=== PATIENT | female | born 1970 | race Asian ===

== ENCOUNTER 2022-03-07 13:50 | Outpatient (REF) | payer MEDICAID, SELFPAY ==
[2022-03-07 14:15] LABS: MANUAL DIFF FLAG NO
[2022-03-07 14:22] LABS: Basophils Percent Auto 0.6 % (0-2); Eosinophils Absolute Auto 0.1 X10*3/uL (0.0-0.4); Eosinophils Percent Auto 2.8 % (0-4); Hematocrit 40.7 % (37.0-47.0); Hemoglobin 13.6 g/dl (12.0-16.0); Imm Gran Abs Auto 0.02 X10*3/uL (0.00-0.03); Imm Gran Pct Auto 0.4 % (0.0-0.4); Lymphocytes Absolute Auto 1.8 X10*3/uL (1.2-4.9); Lymphocytes Percent Auto 35.5 % (20-40); Mean Corpuscular HGB Conc 33.4 g/dl (31.0-35.0); Mean Corpuscular Hemoglobin 31.2 pg (27.0-33.0); Mean Corpuscular Volume 93.3 fL (80.0-98.0); Mean Platelet Volume 9.6 fL (9.4-12.3); Monocytes Absolute Auto 0.6 X10*3/uL (0.1-1.2); Monocytes Percent Auto 11.2 % (2-11); Neutrophils Absolute Auto 2.5 x10*3/uL (2.0-8.3); Neutrophils Percent Auto 49.5 % (45-73); Platelet Count 237 X10*3/uL (160-400); Red Blood Count 4.36 X10*6/uL (4.20-5.50); Red Cell Distribution Width 12.4 % (11.0-16.0)
[2022-03-07 14:36] LABS: Prothrombin Time 11.3 SEC (10.0-13.1)
[2022-03-07 14:58] LABS: Alanine Aminotransferase 21 U/L (0-31); Albumin Level 4.6 g/dL (3.5-5.0); Alkaline Phosphatase 62 U/L (39-117); Anion Gap 14 (12-20); Aspartate Amino Transferase 25 U/L (5-31); Bilirubin Total < 0.2 mg/dL (0.0-1.0); Blood Urea Nitrogen 21 mg/dL (9-16); Calcium 9.6 mg/dL (8.4-10.2); Carbon Dioxide 25 mmol/L (22-29); Chloride 107 mmol/L (96-108); Estimated Glomerular Filt Rate > 60; Glucose Random 80 mg/dL (60-115); Potassium 4.2 mmol/L (3.3-5.1); Sodium 142 mmol/L (135-145); Total Protein 7.6 g/dL (6.5-8.0)
[2022-03-07 15:12] LABS: Vitamin D 25-OH Total 31.1 ng/mL (>30)
[2022-03-12 11:42] LABS: Hepatitis B Viral DNA Qn - cp 2.68 Log IU/mL (NOT DETECTED); Hepatitis B Viral DNA Qn-IU/mL 476 IU/mL (NOT DETECTED)
== END 2022-03-07 13:51 | disposition home or self-care (01) ==
LOC: HO.LAB 13:50
PROVIDERS: PCP Family Medicine; Visit Provider Internal Medicine Gastroenterology
DX: B19.10 Unspecified viral hepatitis B without hepatic coma (principal)
CPT/HCPCS: 36415; 80053; 82306; 85025; 85610; 87340; 87517; 99202

== ENCOUNTER 2022-04-18 09:33 | Outpatient (REF) | payer MEDICAID, SELFPAY ==
--- NOTE | ~2022-04-18 | US_ITS ---
EXAMINATION: US ABDOMEN COMPLETE CLINICAL INFORMATION: Hepatitis B. Cirrhosis. Screening for HCC. COMPARISON: Ultrasound abdomen complete 11/02/2019 and 12/09/2018. TECHNIQUE: Real-time imaging of the abdominal viscera. FINDINGS: PANCREAS: The pancreas appears unremarkable, without masses or ductal dilatation, with the exception of the tail which is obscured by bowel gas. ABDOMINAL AORTA: The proximal, mid, and distal segments are normal in caliber. INFERIOR VENA CAVA: Visualized portions are normal. LIVER: The liver is normal in size. The liver contour is normal. There is diffuse mildly heterogeneous increased liver parenchymal echogenicity, consistent with hepatic steatosis. No focal hepatic lesion. There is no intrahepatic biliary duct dilatation seen. GALLBLADDER: The gallbladder is physiologically distended without evidence of stones, sludge, polyps, wall thickening or pericholecystic fluid. COMMON BILE DUCT: Normal in caliber measuring 0.5 cm in diameter. RIGHT KIDNEY: No hydronephrosis. No renal calculi or focal parenchymal lesions. The kidney measures 10.4 cm in maximum dimension. LEFT KIDNEY: No hydronephrosis. No renal calculi or focal parenchymal lesions. The kidney measures 11.4 cm in maximum dimension. SPLEEN: Normal. The spleen measures 9.7 cm in maximum dimension. FREE FLUID: None. US/US abdomen complete IMPRESSION: Hepatic steatosis. No focal liver mass to suggest hepatocellular carcinoma.
== END 2022-04-18 09:34 | disposition home or self-care (01) ==
LOC: HO.US 09:33
PROVIDERS: Visit Provider Internal Medicine Gastroenterology
DX: B19.10 Unspecified viral hepatitis B without hepatic coma (principal)
CPT/HCPCS: 76700

== ENCOUNTER → 2022-07-11 10:18 | Outpatient (BNVA) | payer MEDICAID, SELFPAY | PROVIDERS: PCP Family Medicine; Visit Provider Internal Medicine Gastroenterology | DX: B18.1 Chronic viral hepatitis B without delta-agent (principal); K21.9 Gastro-esophageal reflux disease without esophagitis; R63.5 Abnormal weight gain; F90.9 Attention-deficit hyperactivity disorder, unspecified type | CPT/HCPCS: 99212 ==

== ENCOUNTER 2023-02-07 08:02 | Day surgery (SDC) | payer OTHER, SELFPAY ==
[2023-02-05 10:09] VITALS: BMI 32.2
[2023-02-07 08:23] VITALS: BMI 30.4
[2023-02-07 08:30] VITALS: BP 102/77; PULSE 79; RESP 16; TEMP 36.6; O2SAT 100
--- NOTE | 2023-02-07 08:54 | P.CONAN_ITS ---
HPI - Anesthesia Eval Consult details Narrative: forcolonoscopy screen [facility] Active Problems Active Problems: All Active Problems (Updated 02/05/23 @ 10:07 by Cynthia Zaman RN) Hepatitis B (Acute) Past Medical History Medical History ADHD (attention deficit hyperactivity disorder) Asthma Depression GERD (gastroesophageal reflux disease) Hepatitis B History of COVID-19 Lichen planus Family History Family history of problems with anesthesia: No Surgical History Surgical History Hx of tonsillectomy Hx of tooth extraction Social History Social History Household Members: Family Alcohol intake: former Patient Tobacco Use Status: Never used Tobacco Use of substances other than those prescribed or required for medical reasons: No Are you DNR?: No Advance Directives: No Advance Directives Information Provided: Yes Meds Allergies Allergy/AdvReac Type Severity Reaction Status Date / Time aspirin Allergy Unknown Anxiety Verified 02/07/23 08:21 Home Medications Medication Instructions Recorded Confirmed Last Taken Type budesonide-formoterol HFA 80 1 inh inhalation BID 03/07/22 02/07/23 Unknown History mcg-4.5 mcg/actuation aerosol inhaler (Symbicort) cetirizine 10 mg capsule (Zyrtec) 10 mg PO DAILY PRN Allergy Symptoms 03/07/22 02/07/23 Unknown History citalopram 30 mg capsule 30 mg PO DAILY 03/07/22 02/07/23 Unknown History fluticasone propionate 50 1 spray intranasal DAILY 03/07/22 02/07/23 Unknown History mcg/actuation nasal spray,suspension (Flonase Allergy Relief) multivitamin 1 tab PO DAILY 03/07/22 02/07/23 Unknown History albuterol sulfate 90 mcg/actuation 2 puff inhalation Q6H PRN wheezing 07/11/22 02/07/23 Unknown History aerosol inhaler (ProAir HFA) metronidazole 0.75 % (37.5 mg/5 1 appful vaginal BEDTIME 02/07/23 02/07/23 Unknown History gram) vaginal gel Exam Exam Date and Time: February 07, 2023 0854 Height,Weight and Vital Signs: Height 5 ft 2 in Weight 75.296 kg Last Vital Signs Temp 97.8 F 02/07/23 08:30 Pulse 79 02/07/23 08:30 Resp 16 02/07/23 08:30 BP 102/77 02/07/23 08:30 Pulse Ox 100 02/07/23 08:30 O2 Del Method Room Air 02/07/23 08:30 Airway Mallampati Class: II TM Dist: >3cm Neck ROM: Full Heart: rrr Lungs: cta Assessment and Plan Assessment Anesthesia Assessment: Anesthesia Plan Discussed and Chart Reviewed Final Anesthetic Review Family History of Problems with Anesthesia: No NPO: Yes ASA Class: II Final Preanesthetic Review: No Changes in Pt Med Stat, Meds/Allgs Chart Reviewed, Consent Obtained/Reviewed and Anes Risks/Benef Reviewed Patient Risk: Low Procedure Risk: Low Anesthetic Plan Anesthetic Plan: MAC: Disposition: Standard PACU
[2023-02-07] MEDS: Lactated Ringers 1,000 ML 50 ML IVCONT (08:56)
--- NOTE | 2023-02-07 09:15 | MHC.SHP ---
Pre-Procedural Eval Section A Date of Service: 02/07/23 The patient is an INPATIENT: No The History & Physical has been completed within 30 days and I have reviewed it.: No Section B Chief Complaint: Colon cancer screening Relevant Family History (Specify if Yes): No Relevant Social History: None Present Medications: see Short Stay Collaborative assessment Medical History: Significant History (GERD, ADHD, asthma, depression) History of Previous Operations: Relevant previous surgery/procedure and date(s) (Hx of colonoscopy Hx of tonsillectomy Hx of tooth extraction) Allergies: Allergies Allergy/AdvReac Type Severity Reaction Status Date / Time aspirin Allergy Unknown Anxiety Verified 02/07/23 08:21 Review of Systems Sugical H&P ROS: Negative: Constitution, Cardiovascular, Respiratory and Gastrointestinal Exam Surgical H&P Exam: Normal: Heart, Normal: Lungs, Normal: Extremities and Normal: Abdomen Plan Diagnosis/Plan: Unchanged I have reviewed the history and physical and performed a pertinent physical examination on my patient. No changes have occurred unless specified. Time Spent With Patient Time: Total time managing care of this patient today ____ minutes.
--- NOTE | 2023-02-07 09:21 | PC.NURSE ---
Patient finished her prep at 345 this morning mixed with apple juice. Dr. Degroot made aware.
--- NOTE | 2023-02-07 09:25 | P.OP_ITS ---
Operative Note Operative Note Date of Service: 02/07/23 Narrative: COLONOSCOPY TILL CECUM WITH SNARE POLYPECTOMY, SUBMUCOSAL INJECTION AND HEMOCLIP PLACEMENT Pre-op diagnosis: Colon cancer screening Post-op diagnosis:? Colon polyps, diverticulosis Endoscopist:? Ronan Beck MD Anesthesia:?MAC Consent: Indications for the procedure and potential complications of bleeding, perforation, reaction to medications and missed diagnosis were discussed with the patient and informed consent was obtained. Instrument: Olympus PCF H 190 L variable stiffness pediatric colonoscope Monitoring: Vital signs and clinical assessment, intermittent blood pressure monitoring, continuous EKG monitoring, Pulse oximetry and Carbon Dioxide monitoring were done throughout the procedure. Please see anesthesia flowsheet. Colon withdrawl time was 20 minutes. Procedure: The patient was placed in the left lateral decubitis position and pre-procedure medications were administered. After a digital rectal examination of the ano-rectum, the video colonoscope was inserted into the rectum and advanced through the colon to the cecum. The colonoscope was slowly withdrawn in a retrograde panoramic fashion and the colon mucosa was carefully examined including a retroflexed view of the rectum. Findings and interventions are described below. Procedure Difficulty: Without difficulty Findings: Terminal Ileum: Not evaluated Cecum: Normal Ascending Colon: A 10-12 mm sessile polyp in the mid AC at 80 cms - removed with a hot snare. A 15 mm flat polyp at 80 cms. Polyp was raised with 3 cc of Eleview and removed with a stiff hot snare. Polypectomy site was closed with 1 hemoclip and marked by Tierney ink Transverse Colon: A 15 to 18 mm flat polyp at 65 cms. Polyp was raised with 3 cc of Eleview and removed with stiff hot snare Polypectomy site was closed with 2 hemoclips and marked by Tierney ink.. Descending Colon: Normal Sigmoid Colon: Moderate diverticulosis Rectum: Normal Ano-rectum: Normal Colon preparation: Good Impression and Post Procedure Diagnosis: Colonoscopy Findings: Three medium sized polyps removed Moderate diverticulosis seen in the sigmoid colon Moderate hemorrhoids on retroflexed exam. Plan: Await pathology results Patient has an appointment on 03/13/23 in the GI Clinic with Sylvester Gallego. Repeat Colonoscopy interval based on path results - in 3 years if polyps are adenomatous and 10 years if polyps are hyperplastic. Colon polyps and diverticulosis handouts were given in the discharge area
[2023-02-07 10:15] VITALS: BP 130/100; PULSE 75; RESP 17; TEMP 36.1; O2SAT 100
[2023-02-07 10:30] VITALS: BP 112/84; PULSE 74; RESP 16; O2SAT 100
[2023-02-07 10:45] VITALS: BP 111/79; PULSE 72; RESP 16; TEMP 36.1; O2SAT 99
== END 2023-02-07 11:12 | disposition home or self-care (01) ==
PROVIDERS: PCP Family Medicine; Visit Provider Internal Medicine Gastroenterology
PROC: 0DJD8ZZ Inspection of Lower Intestinal Tract, Via Natural or Artificial Opening Endoscopic (ICD-10-PCS; CPT 45378; principal; 2023-02-07 09:20)
DX: Z12.11 Encounter for screening for malignant neoplasm of colon (principal); D12.2 Benign neoplasm of ascending colon; D12.3 Benign neoplasm of transverse colon; K57.30 Diverticulosis of large intestine without perforation or abscess without bleeding; K64.8 Other hemorrhoids; B18.1 Chronic viral hepatitis B without delta-agent; K21.9 Gastro-esophageal reflux disease without esophagitis; J45.909 Unspecified asthma, uncomplicated; Z79.899 Other long term (current) drug therapy
CPT/HCPCS: 45385; 45381; 88305; J1100

== ENCOUNTER → 2023-02-07 08:02 | Outpatient (BNV) | payer OTHER, SELFPAY | PROVIDERS: PCP Family Medicine; Visit Provider Internal Medicine Gastroenterology | DX: Z12.11 Encounter for screening for malignant neoplasm of colon (principal); D12.2 Benign neoplasm of ascending colon; D12.3 Benign neoplasm of transverse colon; K57.30 Diverticulosis of large intestine without perforation or abscess without bleeding | CPT/HCPCS: 45381; 45385 ==

== ENCOUNTER 2023-03-13 13:06 | Outpatient (AMB) | payer OTHER, SELFPAY ==
[2023-03-13 13:09] VITALS: BP 112/69; PULSE 78; BMI 30.8
--- NOTE | 2023-03-13 13:09 | MHC.OFFVIS ---
Intake Vital Signs 03/13/23 13:09 Height 5 ft 2 in Weight 168 lb 6.931 oz BMI 30.8 BP 112/69 Blood Pressure Location Rt brachial Position Sitting Pulse 78 Intake Visit Reasons: 4 month FU Intake Note: Patient presents to in office visit today in follow up of colonoscopy. Patient underwent colonoscopy on 02/07/23. CC: Natalia reports she is having some GERD occasionally. Denies other GI symptoms today. 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 Accompanied by: Self / Same As Patient Allergies aspirin Allergy (Unknown, Verified 03/13/23 13:18) Unknown Medication List - Last Reconciled 03/13/23 by Ronan Beck MD albuterol sulfate 90 mcg/actuation (ProAir HFA) 2 puffs inhalation Q6H PRN budesonide-formoterol 80-4.5 mcg/actuation (Symbicort) 1 inh inhalation BID cetirizine (Zyrtec) 10 mg PO DAILY PRN citalopram 30 mg PO DAILY fluticasone propionate 50 mcg/actuation (Flonase Allergy Relief) 1 spray intranasal DAILY metronidazole 0.75%(37.5mg/5gram) 1 appful vaginal BEDTIME multivitamin 1 tab PO DAILY PFSH Medical History (Updated 03/13/23 @ 13:26 by Ronan Beck MD) Depression Lichen planus GERD (gastroesophageal reflux disease) History of COVID-19 Asthma Hepatitis B ADHD (attention deficit hyperactivity disorder) Surgical History (Updated 03/13/23 @ 13:15 by Mckenzie Melendrez [facility]) H/O colonoscopy H/O breast biopsy Hx of tonsillectomy Hx of tooth extraction Social History Household Members: Family Alcohol intake: former Patient Tobacco Use Status: Never used Tobacco Physical Exam Vital Signs: Last Vital Signs Pulse 78 03/13/23 13:09 BP 112/69 03/13/23 13:09 BMI result Body Mass Index 30.8 Assessment & Plan Assessment & Plan (1) Hepatitis B: Code(s): B19.10 - Unspecified viral hepatitis B without hepatic coma (2) History of colon polyps: Code(s): Z86.010 - Personal history of colonic polyps Orders: Orders Complete Blood Count no Diff 03/13/23 B19.10 - Unspecified viral hepatitis B without hepatic coma Hepatitis B Viral DNA Qn 03/13/23 B19.10 - Unspecified viral hepatitis B without hepatic coma Liver Panel 03/13/23 B19.10 - Unspecified viral hepatitis B without hepatic coma US abdomen limited 03/13/23 B19.10 - Unspecified viral hepatitis B without hepatic coma Medications: New famotidine 20 mg PO BID 180 tabs 3RF 90 days K21.9 - Gastro-esophageal reflux disease without esophagitis Coding Diagnoses Hepatitis B B19.10 History of colon polyps Z86.010
--- NOTE | 2023-03-13 13:09 | MHC.OFFVIS ---
Intake Vital Signs 03/13/23 13:09 Height 5 ft 2 in Weight 168 lb 6.931 oz BMI 30.8 BP 112/69 Blood Pressure Location Rt brachial Position Sitting Pulse 78 Intake Visit Reasons: 4 month FU Allergies aspirin Allergy (Unknown, Verified 03/13/23 13:18) Unknown Medication List - Last Reconciled 03/13/23 by Ronan Beck MD albuterol sulfate 90 mcg/actuation (ProAir HFA) 2 puffs inhalation Q6H PRN budesonide-formoterol 80-4.5 mcg/actuation (Symbicort) 1 inh inhalation BID cetirizine (Zyrtec) 10 mg PO DAILY PRN citalopram 30 mg PO DAILY fluticasone propionate 50 mcg/actuation (Flonase Allergy Relief) 1 spray intranasal DAILY metronidazole 0.75%(37.5mg/5gram) 1 appful vaginal BEDTIME multivitamin 1 tab PO DAILY HPI 4 month FU HPI Details GI clinic visit for this 52 YF for FU of GERD and Hepatitis B. CHRONIC ILLNESSES: ADHD, Hepatitis B LABS IN [place]:?11/02/19? REVIEWED, NORMAL LFTS. Hepatitis-B DNA was 1030 units/mL - slightly decreased? from December 2018. ?06/2016 LIVER FIBROSIS SCORE 0.24, LIVER FIBROSIS STAGE? F0 TO F1, NECROINFLAMMATORY SCORE 0.07 ?IMAGING STUDIES: 11/02/19? ABDOMINAL ULTRASOUND WITH ELASTOGRAPHY SHOWED: ??Coarse echogenic liver. Otherwise? rest of the abdominal ultrasound is unremarkable. 2. Elastography: Normal.? December 2018: ENDOSCOPIC STUDIES:?02/07/23 COLONOSCOPY SHOWED: Three medium sized polyps removed Moderate diverticulosis seen in the sigmoid colon Moderate hemorrhoids on retroflexed exam. Plan: Repeat Colonoscopy interval based on path results - in 3 years if polyps are adenomatous and 10 years if polyps are hyperplastic. BIOPSIES SHOWED: A. Colon, ascending, 80 cm, polypectomy x2: Sessile serrated polyp/lesion without dysplasia (1). B. Colon, transverse, 65 cm, polypectomy: Sessile serrated polyp/lesion without dysplasia TODAY'S VISIT: Colon results reviewed with the patient. Denies problems after her procedures. Coughing has improved and feels stronger. She ran out of Famotidine and notes recurrent GERD symptoms and is requesting a refill. She would like to see a Clip Wrapper for Lichen Planus. PAST VISITS: Continues to have coughing or wheezing since she had COVID. She is able to stand up to do her chores. Seen by pulmonary at [facility] [place] and had PFT Waiting to schedule an appt at the COVID clinic at [facility] Had asthma prior to getting COVID Returns after a hiatus of 2 yrs. Stayed home for a year due to COVID. Hospitalized for COVID in Oct, 2020 with pneumonia Has gained 40 lbs - some wt gain due to depression Complains of fatigue - now can shower standing up and going out to the garden. Notes heartburn - took rantidine prn in the past. Patient denies symptoms of dysphagia, nausea, vomiting, change in appetite.? Denies recent change in bowel habits, constipation, diarrhea, black stools or rectal bleeding. Had an episode of nausea and diarrhea lasting for a day almost 1 year ago. Patient denies major cardiac or pulmonary problems, loud snoring or sleep apnea Denies problems with anesthesia in the past. Denies being on chronic anticoagulation.? Takes Ibuprofen prn for back pain. Does not take aspirin due to undiagnosed bleeding disorder since childhood. Denies smoking or ETOH. 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 Patient denies known family history of colon polyps, colon cancer or other GI malignancies. An maternal aunt (Mom's half sister) had a couple of polyps PAST VISITS: ?Intermittent GERD symptoms associated with intake of [place]? food - [place] food - pork and duck skin, tomato based? products. ?Has gained weight due to depression associated with a bad? life style. ?Did not have insurance since she lost her? job. ?Going back to her therapist - family therapy with her daughter? who is 19 yrs. ?Has Lichen Planus and uses steroid cream and had UV? treatment. ?PAST GI HISTORY BY REVIEW OF MEDICAL RECORDS: ?Pt? was last seen on 12/07/18: ?Assessments ?1. Chronic viral? hepatitis B without delta agent and without coma - B18.1 (Primary) ?2.? Gastroesophageal reflux disease, esophagitis presence not specified - K21.9?3. Colon cancer screening - Z12.11 ?48 year old [place]? [place] female with chronic hepatitis B diagnosed in early . Patient? thinks she acquired hepatitis B infection from her dad by sharing razors blades.? Transaminases were minimally elevated a year ago. She is Hep B e antigen? negative. Patient may have early cirrhosis based on labs from June 2016? showing a Liver fibrosis score of 0.24 in correlating with liver fibrosis stage? of F0 to a F1. Course and prognosis of chronic hepatitis-B infection was? discussed with the patient including risk of hepatocellular carcinoma requiring? regular surveillance with abdominal ultrasound every 6 to 12 months. Patient? expressed concern regarding presence of fatty liver and was advised to await? results of abdominal ultrasound. Gwendolyn will return for a follow-up appointment? after repeat lab tests and an abdominal ultrasound. ?From? UTD: ?HBV DNA levels are also detectable in patients with? HBeAg-negative chronic hepatitis, although levels are generally lower than in? patients with HBeAg-positive chronic hepatitis. A serum HBV DNA level of? >2,000 international units/mL has been proposed as a cutoff level to? differentiate patients with HBeAg-negative chronic hepatitis from those in an? inactive carrier state (ie, HBeAg-negative, persistently normal ALT). Two? studies confirmed that serum HBV DNA levels of patients in the inactive carrier? state were persistently below 2000 international units/mL, but serum HBV DNA? levels were highly variable among patients with HBeAg-negative hepatitis.? Because of the fluctuations in HBV DNA levels in the latter patients, there is? no absolute cutoff level that is reliable for differentiating patients in the? inactive carrier state from those with HBeAg-negative chronic hepatitis B. Some? studies suggest that quantitative HBsAg levels <1000 international units/mL? help in differentiating inactive carriers from those with HBeAg-negative chronic? hepatitis. ?Clinical use The major clinical role of serum HBV DNA? assays in patients with chronic HBV infection is to assess HBV replication and? candidacy for antiviral therapy. Indications for HBV treatment are based upon? the presence of active liver disease and high HBV DNA levels. A cutoff of 20,000? international units/mL has been proposed for treatment initiation in? HBeAg-positive patients, and a lower threshold of 2000 international units/mL? for HBeAg-negative patients. ?Patient complained of intermittent? heartburn symptoms related to her diet. She was advised to start ranitidine 150? mg p.r.n. ?Patient turned 48 a few months ago and is interested in? colon cancer screening with colonoscopy. This will be discussed and scheduled on? her follow-up visit. ?Treatment ?1. Chronic viral hepatitis? B without delta agent and without coma ? LAB: LIVER PROFILE? LAB: CBC w/o DIFF ? LAB: PROTHROMBIN TIME (PT, INR)? LAB: HEPATITIS B E ANTIBODY ? LAB: HEPATITIS B E ANTIGEN? LAB: HEPATITIS B VIRAL DNA QUANT ? LAB: HEPATITIS A? ANTIBODY-IGG ? IMAGING: US ABD ?2. Gastroesophageal reflux? disease, esophagitis presence not specified ?Start Ranitidine 150 Max? Strength Tablet, 150 MG, 1 tablet at bedtime prn, Orally, Once a day, 60 day(s),? 60, Refills 3 ?Follow Up ?6 Weeks (Reason: FU of Hepatitis B? and C) [facility] Medical History (Updated 03/13/23 @ 13:26 by Ronan Beck MD) Depression Lichen planus GERD (gastroesophageal reflux disease) History of COVID-19 Asthma Hepatitis B ADHD (attention deficit hyperactivity disorder) Surgical History (Updated 03/13/23 @ 13:15 by MAITE Jacques) H/O colonoscopy H/O breast biopsy Hx of tonsillectomy Hx of tooth extraction Social History Household Members: Family Alcohol intake: former Patient Tobacco Use Status: Never used Tobacco Review of Systems Const All systems reviewed & are unremarkable except as noted in HPI and below Physical Exam Vital Signs: Last Vital Signs Pulse 78 03/13/23 13:09 BP 112/69 03/13/23 13:09 BMI result Body Mass Index 30.8 Const General: healthy appearing and no acute distress Nutritional Appearance: obese Orientation/consciousness: patient oriented x3 Limitations: no limitations HEENT Head: Yes normal to inspection Ears: hearing grossly normal bilaterally Eyes Sclerae: sclerae normal Pupils: Equal, round and reactive pupils present Neck Neck: Yes normal visual inspection Chest Chest palpation & inspection: normal inspection of the chest Resp Effort & Inspection: normal respiratory effort Auscultation: clear to auscultation bilaterally Cardio Palpation: normal PMI Rate: regular rate Rhythm: regular rhythm Heart sounds: S1 normal heart sound present, S2 normal heart sound present and no murmurs GI Palpation (GI): Soft to palpation, nontender and No hepatosplenomegaly present Auscultation: normal bowel sounds Rectal Exam - Female: deferred Skin General skin exam: no rashes or lesions noted Neuro General: patient oriented x3, gait normal and moves all extremities Cranial nerves: Yes Equal, round and reactive pupils present Psych Appearance: grossly normal Mental Status: mental status grossly normal Assessment & Plan Assessment & Plan (1) Hepatitis B: Code(s): B19.10 - Unspecified viral hepatitis B without hepatic coma (2) History of colon polyps: Code(s): Z86.010 - Personal history of colonic polyps Plan 52 year old [place] female with chronic hepatitis B diagnosed in early? . Patient thinks she acquired hepatitis B infection from her dad by sharing? razors blades. Transaminases were minimally elevated a few years ago. She is Hep B E antigen negative and ab positive. Patient may have early cirrhosis based on labs from June? 2016 showing a Liver fibrosis score of 0.24 correlating with liver fibrosis? stage of F0 to a F1. Course and prognosis of chronic hepatitis-B infection was? discussed with the patient (at a previous visit) including risk of hepatocellular carcinoma requiring? regular surveillance with abdominal ultrasound every 6 to 12 months. Patient? expressed concern regarding presence of fatty liver. 11/02/19 abdominal? ultrasound showed echogenic liver with normal elastography. Patient complained of intermittent heartburn symptoms related to her diet.? She was advised to start ranitidine 150 mg p.r.n at a previous visit. Continues to have coughing or wheezing since she had COVID in October 2020. 03/13/23 Resume Famotidine for GERD, repeat labs and schedule abd US for HCC surveillance FU in 6 months From UTD: HBV? DNA levels are also detectable in patients with HBeAg-negative chronic? hepatitis, although levels are generally lower than in patients with? HBeAg-positive chronic hepatitis. A serum HBV DNA level of >2,000? international units/mL has been proposed as a cutoff level to differentiate? patients with HBeAg-negative chronic hepatitis from those in an inactive carrier? state (ie, HBeAg-negative, persistently normal ALT). Two studies confirmed that? serum HBV DNA levels of patients in the inactive carrier state were persistently? below 2000 international units/mL, but serum HBV DNA levels were highly variable among patients with HBeAg-negative hepatitis. Because of the fluctuations in HBV? DNA levels in the latter patients, there is no absolute cutoff level that is reliable for differentiating patients in the inactive carrier state from those? with HBeAg-negative chronic hepatitis B. Some studies suggest that quantitative HBsAg levels <1000 international units/mL help in differentiating inactive? carriers from those with HBeAg-negative chronic hepatitis. Clinical use The? major clinical role of serum HBV DNA assays in patients with chronic HBV? infection is to assess HBV replication and candidacy for antiviral therapy.? Indications for HBV treatment are based upon the presence of active liver disease and high HBV DNA levels. A cutoff of 20,000 international units/mL has? been proposed for treatment initiation in HBeAg-positive patients, and a lower? threshold of 2000 international units/mL for HBeAg-negative patients.? Orders: Orders Complete Blood Count no Diff 03/13/23 B19.10 - Unspecified viral hepatitis B without hepatic coma Hepatitis B Viral DNA Qn 03/13/23 B19.10 - Unspecified viral hepatitis B without hepatic coma Liver Panel 03/13/23 B19.10 - Unspecified viral hepatitis B without hepatic coma US abdomen limited 03/13/23 B19.10 - Unspecified viral hepatitis B without hepatic coma Medications: New famotidine 20 mg PO BID 90 days 180 tabs 3RF K21.9 - Gastro-esophageal reflux disease without esophagitis Coding Level of Care Code Est Pt Level 4 (06595) Diagnoses Hepatitis B B19.10 History of colon polyps Z86.010 Time Spent (min) 22
== END 2023-03-13 13:51 | disposition home or self-care (01) ==
PROVIDERS: PCP Family Medicine; Visit Provider Internal Medicine Gastroenterology
DX: B19.10 Unspecified viral hepatitis B without hepatic coma (principal); Z86.010 Personal history of colon polyps
CPT/HCPCS: 99214

== ENCOUNTER 2023-03-13 13:06 | Outpatient (REF) | payer OTHER, SELFPAY ==
[2023-03-13 14:08] LABS: Hemoglobin 13.7 g/dl (12.0-16.0); Mean Corpuscular HGB Conc 33.4 g/dl (31.0-35.0); Mean Corpuscular Hemoglobin 31.7 pg (27.0-33.0); Mean Corpuscular Volume 94.9 fL (80.0-98.0); Mean Platelet Volume 9.9 fL (9.4-12.3); Platelet Count 217 X10*3/uL (160-400); Red Blood Count 4.32 X10*6/uL (4.20-5.50); Red Cell Distribution Width 11.9 % (11.0-16.0); White Blood Count 5.7 X10*3/uL (4.8-10.8)
[2023-03-13 14:56] LABS: Alanine Aminotransferase 15 U/L (0-31); Albumin Level 4.6 g/dL (3.5-5.0); Alkaline Phosphatase 61 U/L (39-117); Aspartate Amino Transferase 21 U/L (5-31); Bilirubin Direct 0.1 mg/dL (0.0-0.5); Bilirubin Total 0.4 mg/dL (0.0-1.0); Total Protein 8.1 g/dL (6.5-8.0)
[2023-03-15 12:03] LABS: Hepatitis B Viral DNA Qn - cp 2.33 Log IU/mL (NOT DETECTED); Hepatitis B Viral DNA Qn-IU/mL 213 IU/mL (NOT DETECTED)
== END 2023-03-13 13:07 | disposition home or self-care (01) ==
LOC: HO.LAB 13:06
PROVIDERS: PCP Family Medicine; Visit Provider Internal Medicine Gastroenterology
DX: B19.10 Unspecified viral hepatitis B without hepatic coma (principal); K21.9 Gastro-esophageal reflux disease without esophagitis; Z86.010 Personal history of colon polyps; Z79.899 Other long term (current) drug therapy
CPT/HCPCS: 36415; 80076; 85027; 87517; 99212

== ENCOUNTER 2023-04-18 10:12 | Outpatient (REF) | payer OTHER, SELFPAY ==
--- NOTE | ~2023-04-18 | US_ITS ---
EXAMINATION: US ABDOMEN LIMITED CLINICAL INFORMATION: Unspecified viral hepatitis B without hepatic coma. Screening for hepatocellular carcinoma. COMPARISON: Ultrasound abdomen complete 04/18/2022 and 11/02/2019. TECHNIQUE: Real-time imaging of the right upper quadrant abdominal viscera. Limited visualization due to bowel gas. FINDINGS: PANCREAS: Limited visualization of pancreatic tail and head. Imaged portion of pancreatic body is unremarkable. LIVER: Increased hepatic parenchymal heterogeneity and echogenicity which could be associated with hepatic steatosis or hepatocellular disease and substantially limits visualization. GALLBLADDER: No gallstones. No gallbladder wall thickening. COMMON BILE DUCT: Normal in caliber measuring 0.19 cm in diameter. RIGHT KIDNEY: No hydronephrosis. No renal calculi. Renal cortical thickness is normal. Limited visualization. The kidney measures 8.2 cm in maximum dimension. FREE FLUID: None. US/US abdomen limited IMPRESSION: Increased hepatic parenchymal heterogeneity and echogenicity which could be associated with hepatic steatosis or hepatocellular disease and substantially limits visualization.
== END 2023-04-18 10:13 | disposition home or self-care (01) ==
LOC: HO.US 10:12
PROVIDERS: PCP Family Medicine; Visit Provider Internal Medicine Gastroenterology
DX: B19.10 Unspecified viral hepatitis B without hepatic coma (principal)
CPT/HCPCS: 76705

== ENCOUNTER 2025-02-10 11:55 | Outpatient (REF) | payer OTHER, SELFPAY ==
[2025-02-10 13:54] LABS: Hematocrit 42.8 % (37.0-47.0); Hemoglobin 14.4 g/dl (12.0-16.0); Mean Corpuscular HGB Conc 33.6 g/dl (31.0-35.0); Mean Corpuscular Hemoglobin 31.8 pg (27.0-33.0); Mean Corpuscular Volume 94.5 fL (80.0-98.0); NRBC Abs Auto 0.000 X10*3/uL (0.0-0.012); NRBC Pct Auto 0.0 /100WBC (0.0-0.2); Platelet Count 250 X10*3/uL (160-400); Red Blood Count 4.53 X10*6/uL (4.20-5.50); White Blood Count 5.1 X10*3/uL (4.8-10.8)
[2025-02-10 14:30] LABS: Alanine Aminotransferase 41 U/L (0-31); Albumin Level 5.0 g/dL (3.5-5.0); Alkaline Phosphatase 61 U/L (39-117); Anion Gap 11 (12-20); Aspartate Amino Transferase 42 U/L (5-31); Blood Urea Nitrogen 15 mg/dL (9-16); Calcium 9.7 mg/dL (8.4-10.2); Carbon Dioxide 28 mmol/L (22-29); Chloride 104 mmol/L (96-108); Estimated Glomerular Filt Rate > 60; Potassium 3.8 mmol/L (3.3-5.1); Sodium 139 mmol/L (135-145); Total Protein 8.5 g/dL (6.5-8.0)
[2025-02-10 14:54] LABS: Folate 11.6 ng/mL (> or = 4.0); Vitamin B12 575 pg/mL (200-900)
[2025-02-11 14:18] LABS: Hepatitis B Viral DNA Qn - cp 2.02 Log IU/mL (NOT DETECTED); Hepatitis B Viral DNA Qn-IU/mL 105 IU/mL (NOT DETECTED)
[2025-02-18 00:33] LABS: FIB-ALT 24 U/L (6-29); FIB-Alpha-2-Macroglobulin 389 mg/dL (106-279); FIB-Apolipoprotein A1 187 mg/dL (101-198); FIB-GGT 9 U/L (3-70); FIB-Haptoglobin 94 mg/dL (43-212); FIB-Total Bilirubin 0.4 mg/dL (0.2-1.2); Liver Fibrosis Score 0.25; Liver Fibrosis Stage F0-F1; Nec Inflam Act Grade A0; Nec Inflam Act Score 0.10
== END 2025-02-10 11:56 | disposition home or self-care (01) ==
LOC: HO.LAB 11:55
PROVIDERS: PCP Family Medicine; Visit Provider Internal Medicine Gastroenterology
DX: B19.10 Unspecified viral hepatitis B without hepatic coma (principal); K21.9 Gastro-esophageal reflux disease without esophagitis; Z86.0100 Personal history of colon polyps, unspecified
CPT/HCPCS: 36415; 80053; 81596; 82607; 82746; 85027; 87517; 99212

== ENCOUNTER 2025-02-10 11:55 | Outpatient (AMB) | payer OTHER, SELFPAY ==
--- NOTE | 2025-02-10 12:11 | A.OFFVIS_ITS ---
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 Accompanied by: Self / Same As Patient Allergies aspirin Allergy (Unknown, Verified 02/10/25 12:10) Unknown Medication List - Last Reconciled 02/10/25 by Ronan Beck MD albuterol sulfate 90 mcg/actuation (ProAir HFA) 2 puffs inhalation Q6H PRN budesonide-formoterol 80-4.5 mcg/actuation (Symbicort) 1 inh inhalation BID cetirizine (Zyrtec) 10 mg PO DAILY citalopram 30 mg PO DAILY famotidine 20 mg PO BID 90 days fluticasone propionate 50 mcg/actuation (Flonase Allergy Relief) 1 spray intranasal DAILY metronidazole 0.75%(37.5mg/5gram) 1 appful vaginal BEDTIME multivitamin 1 tab PO DAILY HPI HPI CHRONIC Hep B: Details: GI clinic visit for this 54 YF for FU of GERD and Hepatitis B. Last seen in 03/2023 CHRONIC ILLNESSES: ADHD, Hepatitis B TODAY'S VISIT: Patient cc: chronic acid reflux, with feeling of food dont go down quickly on her esophagus Missed her appt last year since she did not have transportation Scheduled for PFT after holding steroids, allergy pills and inhalers Notes acid regurgitation with burning in her chest after eating a fatty meal Taking TUMS prn. Still gets tired on walking and has issues with her balance. Taking Vyvanse 30 mg daily. PAST VISITS: Colon results reviewed with the patient. Denies problems after her procedures. Coughing has improved and feels stronger. She ran out of Famotidine and notes recurrent GERD symptoms and is requesting a refill. She would like to see a Administrative Associate for Lichen Planus. Continues to have coughing or wheezing since she had COVID. She is able to stand up to do her chores. Seen by pulmonary at [facility] and had PFT Waiting to schedule an appt at the COVID clinic at [facility] Had asthma prior to getting COVID Returns after a hiatus of 2 yrs. Stayed home for a year due to COVID. Hospitalized for COVID in Oct, 2020 with pneumonia Has gained 40 lbs - some wt gain due to depression Complains of fatigue - now can shower standing up and going out to the garden. Notes heartburn - took rantidine prn in the past. Patient denies symptoms of dysphagia, nausea, vomiting, change in appetite.? Denies recent change in bowel habits, constipation, diarrhea, black stools or rectal bleeding. Had an episode of nausea and diarrhea lasting for a day almost 1 year ago. Patient denies major cardiac or pulmonary problems, loud snoring or sleep apnea Denies problems with anesthesia in the past. Denies being on chronic anticoagulation.? Takes Ibuprofen prn for back pain. Does not take aspirin due to undiagnosed bleeding disorder since childhood. Denies smoking or ETOH. 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 Patient denies known family history of colon polyps, colon cancer or other GI malignancies. An maternal aunt (Mom's half sister) had a couple of polyps PAST VISITS: ?Intermittent GERD symptoms associated with intake of Tanzanian? food - Tanzanian food - pork and duck skin, tomato based? products. ?Has gained weight due to depression associated with a bad? life style. ?Did not have insurance since she lost her? job. ?Going back to her therapist - family therapy with her daughter? who is 19 yrs. ?Has Lichen Planus and uses steroid cream and had UV? treatment. [facility]?11[facility]? REVIEWED, NORMAL LFTS. Hepatitis-B DNA was 1030 units/mL - slightly decreased? from December 2018. ?06/2016 LIVER FIBROSIS SCORE 0.24, LIVER FIBROSIS STAGE? F0 TO F1, NECROINFLAMMATORY SCORE 0.07 ?IMAGING STUDIES: 11/02/19? ABDOMINAL ULTRASOUND WITH ELASTOGRAPHY SHOWED: ??Coarse echogenic liver. Otherwise? rest of the abdominal ultrasound is unremarkable. 2. Elastography: Normal.? December 2018: ENDOSCOPIC STUDIES:?02/07/23 COLONOSCOPY SHOWED: Three medium sized polyps removed Moderate diverticulosis seen in the sigmoid colon Moderate hemorrhoids on retroflexed exam. Plan: Repeat Colonoscopy interval based on path results - in 3 years if polyps are adenomatous and 10 years if polyps are hyperplastic. BIOPSIES SHOWED: A. Colon, ascending, 80 cm, polypectomy x2: Sessile serrated polyp/lesion without dysplasia (1). B. Colon, transverse, 65 cm, polypectomy: Sessile serrated polyp/lesion without dysplasia ?PAST GI HISTORY BY REVIEW OF MEDICAL RECORDS: ?Pt? was last seen on 12/07/18: ?Assessments ?1. Chronic viral? hepatitis B without delta agent and without coma - B18.1 (Primary) ?2.? Gastroesophageal reflux disease, esophagitis presence not specified - K21.9?3. Colon cancer screening - Z12.11 ?48 year old [place]? Malagasy female with chronic hepatitis B diagnosed in early . Patient? thinks she acquired hepatitis B infection from her dad by sharing razors blades.? Transaminases were minimally elevated a year ago. She is Hep B e antigen? negative. Patient may have early cirrhosis based on labs from June 2016? showing a Liver fibrosis score of 0.24 in correlating with liver fibrosis stage? of F0 to a F1. Course and prognosis of chronic hepatitis-B infection was? discussed with the patient including risk of hepatocellular carcinoma requiring? regular surveillance with abdominal ultrasound every 6 to 12 months. Patient? expressed concern regarding presence of fatty liver and was advised to await? results of abdominal ultrasound. Gwendolyn will return for a follow-up appointment? after repeat lab tests and an abdominal ultrasound. ?From? UTD: ?HBV DNA levels are also detectable in patients with? HBeAg-negative chronic hepatitis, although levels are generally lower than in? patients with HBeAg-positive chronic hepatitis. A serum HBV DNA level of? >2,000 international units/mL has been proposed as a cutoff level to? differentiate patients with HBeAg-negative chronic hepatitis from those in an? inactive carrier state (ie, HBeAg-negative, persistently normal ALT). Two? studies confirmed that serum HBV DNA levels of patients in the inactive carrier? state were persistently below 2000 international units/mL, but serum HBV DNA? levels were highly variable among patients with HBeAg-negative hepatitis.? Because of the fluctuations in HBV DNA levels in the latter patients, there is? no absolute cutoff level that is reliable for differentiating patients in the? inactive carrier state from those with HBeAg-negative chronic hepatitis B. Some? studies suggest that quantitative HBsAg levels <1000 international units/mL? help in differentiating inactive carriers from those with HBeAg-negative chronic? hepatitis. ?Clinical use The major clinical role of serum HBV DNA? assays in patients with chronic HBV infection is to assess HBV replication and? candidacy for antiviral therapy. Indications for HBV treatment are based upon? the presence of active liver disease and high HBV DNA levels. A cutoff of 20,000? international units/mL has been proposed for treatment initiation in? HBeAg-positive patients, and a lower threshold of 2000 international units/mL? for HBeAg-negative patients. ?Patient complained of intermittent? heartburn symptoms related to her diet. She was advised to start ranitidine 150? mg p.r.n. ?Patient turned 48 a few months ago and is interested in? colon cancer screening with colonoscopy. This will be discussed and scheduled on? her follow- up visit. ?Treatment ?1. Chronic viral hepatitis? B without delta agent and without coma ? LAB: LIVER PROFILE? LAB: CBC w/o DIFF ? LAB: PROTHROMBIN TIME (PT, INR)? LAB: HEPATITIS B E ANTIBODY ? LAB: HEPATITIS B E ANTIGEN? LAB: HEPATITIS B VIRAL DNA QUANT ? LAB: HEPATITIS A? ANTIBODY-IGG ? IMAGING: US ABD ?2. Gastroesophageal reflux? disease, esophagitis presence not specified ?Start Ranitidine 150 Max? Strength Tablet, 150 MG, 1 tablet at bedtime prn, Orally, Once a day, 60 day(s),? 60, Refills 3 ?Follow Up ?6 Weeks (Reason: FU of Hepatitis B? and C [facility] Medical History (Updated 03/13/23 @ 13:26 by Ronan Beck MD) Depression Lichen planus GERD (gastroesophageal reflux disease) History of COVID-19 Asthma Hepatitis B ADHD (attention deficit hyperactivity disorder) Surgical History H/O colonoscopy H/O breast biopsy Hx of tonsillectomy Hx of tooth extraction Social History Household Members: Family Alcohol intake: former Patient Tobacco Use Status: Never used Tobacco Review of Systems Const Denies fever(s), Denies headache(s) and Reports weight loss (of 5 lbs) Eyes Denies eye discharge and Denies irritation ENT Reports Normal hearing present, Denies dysphagia, Denies dizziness and Denies headache(s) Card Denies chest pain, Denies leg edema, Reports dyspnea and Reports dyspnea on exertion Resp Reports cough, Reports dyspnea, Reports dyspnea on exertion and Reports wheezing GI Denies abdominal pain, Reports bloating, Denies change in bowel habits, Denies dysphagia and Reports heartburn Denies difficulty voiding, Denies dysuria and Reports other (post menopausal and IUD) Musc Denies back pain and Reports arthralgias Skin/Breast Denies pruritus, Reports rash and Denies jaundice Neuro Reports Normal hearing present, Denies Abnormal speech present, Denies dizziness, Denies headache(s) and Denies seizure-like activity Psych Reports anxiety, Reports depression and Denies panic attacks Endo Denies cold intolerance, Denies flushing and Denies heat intolerance Nabeel/Lymph Denies easy bleeding and Denies easy bruising Aller/Immun Reports wheezing Physical Exam Vital Signs: Last Vital Signs Pulse 82 02/10/25 12:21 BP 128/87 02/10/25 12:21 BMI result Body Mass Index 29.6 Const General: no acute distress and anxious Nutritional Appearance: overweight Orientation/consciousness: patient oriented x3 HEENT Head: Yes normal to inspection Ears: hearing grossly normal bilaterally Eyes Sclerae: sclerae normal Pupils: Equal, round and reactive pupils present Neck Neck: Yes normal visual inspection Chest Chest palpation & inspection: normal inspection of the chest Resp Effort & Inspection: normal respiratory effort Auscultation: clear to auscultation bilaterally Cardio Palpation: normal PMI Rate: regular rate Rhythm: regular rhythm Heart sounds: S1 normal heart sound present, S2 normal heart sound present and no murmurs GI Palpation (GI): Soft to palpation, nontender and No hepatosplenomegaly present Auscultation: normal bowel sounds Rectal Exam - Female: deferred Skin General skin exam: no rashes or lesions noted Neuro General: patient oriented x3, gait normal and moves all extremities Cranial nerves: Yes Equal, round and reactive pupils present and Yes Normal hearing present Speech: No Abnormal speech present Psych Appearance: grossly normal Mental Status: mental status grossly normal Assessment & Plan Assessment & Plan (1) Hepatitis B: Code(s): B19.10 - Unspecified viral hepatitis B without hepatic coma Category: Medical (2) History of colon polyps: Code(s): Z86.010 - Personal history of colon polyps Category: Medical Plan 54 year old [place] Malagasy female with chronic hepatitis B diagnosed in early?. Patient thinks she acquired hepatitis B infection from her dad by sharing?razors blades. Transaminases were minimally elevated a few years ago. She is Hep B E antigen negative and ab positive. Patient may have early cirrhosis based on labs from June?2016 showing a Liver fibrosis score of 0.24 correlating with liver fibrosis? stage of F0 to a F1. Course and prognosis of chronic hepatitis-B infection was? discussed with the patient (at a previous visit) including risk of hepatocellular carcinoma requiring? regular surveillance with abdominal ultrasound every 6 to 12 months. Patient? expressed concern regarding presence of fatty liver. 11/02/19 abdominal? ultrasound showed echogenic liver with normal elastography. Patient complained of intermittent heartburn symptoms related to her diet.? She was advised to start ranitidine 150 mg p.r.n at a previous visit. Continues to have coughing or wheezing since she had COVID in October 2020. 02/10/25 Resume Famotidine for GERD, repeat labs and schedule abd US for HCC surveillance Pt offered further evaluation with an EGD - she prefers to schedule next year with her colonoscopy. Pt is requesting labs and US results to be faxed to her PCP's office. FU in 4 months - scheduled 06/16/25 From MDD: HBV? DNA levels are also detectable in patients with HBeAg-negative chronic? hepatitis, although levels are generally lower than in patients with? HBeAg- positive chronic hepatitis. A serum HBV DNA level of >2,000? international units/mL has been proposed as a cutoff level to differentiate? patients with HBeAg-negative chronic hepatitis from those in an inactive carrier? state (ie, HBeAg-negative, persistently normal ALT). Two studies confirmed that? serum HBV DNA levels of patients in the inactive carrier state were persistently? below 2000 international units/mL, but serum HBV DNA levels were highly variable among patients with HBeAg-negative hepatitis. Because of the fluctuations in HBV? DNA levels in the latter patients, there is no absolute cutoff level that is reliable for differentiating patients in the inactive carrier state from those? with HBeAg-negative chronic hepatitis B. Some studies suggest that quantitative HBsAg levels <1000 international units/mL help in differentiating inactive? carriers from those with HBeAg-negative chronic hepatitis. Clinical use The? major clinical role of serum HBV DNA assays in patients with chronic HBV? infection is to assess HBV replication and candidacy for antiviral therapy.? Indications for HBV treatment are based upon the presence of active liver disease and high HBV DNA levels. A cutoff of 20,000 international units/mL has? been proposed for treatment initiation in HBeAg-positive patients, and a lower? threshold of 2000 international units/mL for HBeAg-negative patient Orders: Orders Complete Blood Count no Diff Today B19.10 - Unspecified viral hepatitis B without hepatic coma Comprehensive Met. Panel Today B19.10 - Unspecified viral hepatitis B without hepatic coma Vitamin B12 and Folate Today B19.10 - Unspecified viral hepatitis B without hepatic coma Liver Fibrosis Pnl Today B19.10 - Unspecified viral hepatitis B without hepatic coma Hepatitis B Viral DNA Qn Today B19.10 - Unspecified viral hepatitis B without hepatic coma US abdomen limited Today B19.10 - Unspecified viral hepatitis B without hepatic coma Medications: Refilled famotidine 20 mg PO BID 180 tabs 3RF 90 days K21.9 - Gastro-esophageal reflux disease without esophagitis Coding Level of Care Code Est Pt Level 4 (36211) Diagnoses Hepatitis B B19.10 History of colon polyps Z86.010 Time Spent (min) 20
[2025-02-10 12:21] VITALS: BP 128/87; PULSE 82; BMI 29.6
--- OUTSIDE RECORDS SUMMARY | 2025-02-10 13:32 | XMS_ITS | Clinical Summary ---
Author Organization [facility] Address [address] [place] [address] Phone Care Team Providers Care Board Certified Music Therapist Name Role Phone Rossi Singh MD Primary Care Provider Allergies Active Allergy Reactions Criticality Noted Date Comments Aspirin 10/16/2020 Clotting disorder Medications citalopram (CELEXA) 10 MG tablet Take 30 mg by mouth daily. Active albuterol 90 mcg/actuation inhaler Inhale 2 puffs into the lungs every 4 (four) hours as needed for wheezing or shortness of breath/dyspnea. 1 Inhaler 1 Active Additional Information Patient taking differently:2 puff Inhalation Every 4 hours PRN, wheezing, shortness of breath/dyspnea,prn, Reported on 01/13/2021 ipratropium-albu teroL (DUONEB) 0.5-3 mg (2.5 mg base)/3 mL nebulizer solution Take 3 mL by nebulization 3 (three) times a day as needed for wheezing. 30 vial 1 Active fluticasone propionate (FLONASE) 50 mcg/actuation nasal spray 1 spray by Nasal route daily. 1 Bottle 1 Active calcium carbonate-vitami n D3 (CALCIUM 500 + D, D3,) 500 mg(1,250mg) -125 unit per tablet as directed Active mometasone furoate (NASONEX NASL) PRN Active cetirizine (ZYRTEC) 10 mg capsule 1 tablet Active citalopram (CELEXA) 10 MG tablet 10 mg 3 (three) times a day. Active levonorgestreL (MIRENA) 20 mcg/24 hours (6 yrs) 52 mg intrauterine device as directed Active lisdexamfetamine (VYVANSE) 70 MG capsule PRN Active guaiFENesin 200 mg tablet Take 1,000 mg by mouth continuous prn for congestion. 1 tab of 1000mg- patient states. Active Active Problems Problem Noted Date Diagnosed Date COVID-19 11/18/2020 Hepatitis B 11/01/2020 Assessment & Plan (11/01/2020 12:27 PM EDT): She has chronic hepatitis B. LFTs in normal range --She is concerned about using acetaminophen. Okay in moderate doses. We will monitor Acute hypoxemic respiratory failure due to COVID -19 10/23/2020 Assessment & Plan (10/31/2020 1:46 PM EDT): Continued improvement in oxygen requirements. Now on 2-3 L NC. Remains afebrile with generally improving symptoms. - Continue to wean oxygen as tolerated, hopefully will be able to get to room air prior to discharge. - Out of bed, mobilization, proning with sleep - Dexamethasone, day 9 of 10 - Completed remdesivir/plasma/tociluzimab - BID lovenox Assessment & Plan (11/02/2020 4:43 PM EDT): Hypoxic respiratory failure secondary to COVID-19 pneumonia. Chest imaging demonstrating expected findings of bibasilar opacities. CTPA showed no PE. She was transferred to the ICU from 10/26-10/31 and treated with high flow. Completed a 5- day course of remdesivir and was treated with convalescent plasma and Tocilizumab. 10-day dexamethasone course was completed on 11/01 Gradually improving. Weaning oxygen --Continue efforts to mobilize and wean O2. Anticipate discharge home soon, and very likely she will wean off oxygen over next 1 to 3 days. Keep saturations 87% or greater --As needed Tylenol/ibuprofen --Encourage sleep/wake cycle Pneumonia due to COVID-19 virus 10/23/2020 Depression Assessment & Plan (10/27/2020 12:50 PM EDT): Continue home citalopram. Assessment & Plan (11/01/2020 12:25 PM EDT): No acute issues --Continue citalopram Asthma Assessment & Plan (11/18/2020 5:09 PM EDT): See above Seasonal allergic rhinitis Assessment & Plan (11/18/2020 5:08 PM EDT): Cont zyrtec Resolved Problems Problem Noted Date Diagnosed Date Resolved Date Acute respiratory failure with hypoxia 11/18/2020 11/19/2020 Assessment & Plan (11/18/2020 4:54 PM EDT): -Fortunately no PE seen on the new CTA -Does not appear to have a secondary bacterial infection but will check a procalcitonin -Has persistent groundglass changes, I have reviewed her imaging with the wood miller and it was felt that there is some improvements on her imaging and steroid treatment was not recommended at this time -Pulmonary recommend outpatient PFTs and possibly outpatient pulmonary follow-up -She does have underlying asthma and though she does not have wheeze on exam seems there could be a component of asthma with start with bronchodilators and serial exams could consider a steroid burst for asthma depending on how she does -It is difficult to know if she had a worsening of symptoms because she was more active and perhaps had some allergen exposures or if there is a clinical change that is worse now -For the phlegm guaifenesin -If there is worsening we will plan for a formal pulmonary consult -Requested home oxygen evaluation Hypokalemia 10/25/2020 Assessment & Plan (10/24/2020 12:36 PM EDT): The patient is hypovolemic on exam. Had oral potassium and 500 cc of D5 half-normal saline with 20 of K. Potassium has normalized. Magnesium unremarkable. She is now taking p.o. Encouraged her to continue to eat and drink ad riana. Hold further IV fluids for now. Immunizations Immunization Administration Dates Next Due Influenza Quadrivalent Preservative Free IM 04/10,02/19/2019 Zoster recombinant 05/21/2019,02/19/2019 Family History Medical History Relation Comments Hepatitis B Father Relation Status Comments Father Social History Tobacco Use Types Packs/Day Years Used Date Smoking Tobacco: Never Smokeless Tobacco: Never Alcohol Use Standard Drinks/Week Comments Not Currently 0 (1 standard drink = 0.6 oz pur e alcohol) Denies any in years Education Answer Date Recorded Are you interested in more education? Not on brien e 10/04/2022 Are you concerned about learning? Not on file 10/04/2022 No 10/04/2022 No 10/04/2022 Digital Access Answer Date Recorded No 11/04/2022 No 11/04/2022 Reliable internet access at home? Not on file 11/04/2022 Device with a working camera? Not on file Comments Unknown Sex and Gender Information Value Date Recorded Sex Assigned at Female 10/16/2020 12:27 PM EDT Legal Sex Female 2:30 PM EDT Gender Identity Female 10/16/2020 12:27 PM EDT Sexual Orientation Choose not to disclose 2020 12:27 PM EDT Last Filed Vital Signs Vital Sign Reading Time Taken Comments Blood Pressure 124/88 01/13/2021 4:29 PM EDT Pulse 87 01/13/2021 4:29 PM EDT Temperature 37.1 C (98.8 F) 01/13/2021 4:29 PM EDT Respiratory Rate 24 01/13/2021 4:29 PM EDT Oxygen Saturation 97% 01/13/2021 4:29 PM EDT Inhaled Oxygen Concentration 40% 10/29/2020 3 :07 PM EDT Weight 72.6 kg (160 lb) 01/13/2021 4:29 PM EDT Height 157.5 cm (5' 2 ) 01/13/2021 4:29 PM EDT Body Mass Index 29.26 01/13/2021 4:29 PM EDT Plan of Treatment Health Maintenance Due Date Last Done Comments Adult Td,Tdap Booster 1968 LIPID PANEL 1968 DEPRESSION SCREENING 1980 HEPATITIS C SCREENING 1986 HIV ONE-TIME SCREENING (18-6 5 YEARS) 1986 HEPATITIS A VACCINES (1 of 2 - Risk 2-dose series) 08/24/1987 PNEUMOCOCCAL VACCINES (50+ years) (1 of 2 - PCV) 08/24/1987 PAP SMEAR 1989 MAMMOGRAM 2008 COLOGUARD 2013 COLONOSCOPY 2013 COLORECTAL CANCER SCREENING 2013 FIT TEST 2013 FOBT 2013 SIGMOIDOSCOPY 2013 VIRTUAL COLONOSCOPY 2013 COVID-19 VACCINE (3 - 2023-2 5 season) 2024 02/22/2021, 02/01/2021 INFLUENZA VACCINE (#1) 2025 , 05/02/2020, 02/19/2019 ZOSTER VACCINES Completed 05/21/2019, 02/19/2019 SMOKING STATUS SCREENING (On ce After 26 Yrs) Completed 01/13/2021 HIB VACCINES Aged Out No longer eligi ble based on patient's age to complete this topic MENINGOCOCCAL VACCINES (ACWY) Aged Out No longer eligible based on patient's age to complete this topic MENINGOCOCCAL VACCINES (B) Aged Out N o longer eligible based on patient's age to complete this topic Medical Devices Not on file Insurance [facility] Advance Directives For more information, please contact: [phone] (9AM - 5PM [facility], Friday-Friday) * Full Code (Latest Code Status on File) Date Activated Date Inactivated Comments 11/18/2020 5:07 PM Question Answer Comments Code Status Confirmed With: Patient * Full Code Date Activated Date Inactivated Comments 10/23/2020 11:50 PM 11/18/2020 5:07 PM Question Answer Comments Code Status Confirmed With: Patient Care Teams Board Certified Music Therapist Relationship Specialty Start Date End Date Rossi Singh MD [address] [place] [phone] PCP - General Family Medicine 10/16/20 Additional Source Comments The information contained in this document represents components of the legal health record. It is not the complete legal health record.[facility]
--- OUTSIDE RECORDS SUMMARY | 2025-02-10 13:32 | XMS_ITS | Encounter Summary ---
Author Organization [facility] Address [address] [place] [address] Phone Care Team Providers Care Mental Health Coordinator Name Role Phone Elaine Joy MD Unavailable [phone] Cleve Duarte MD Unavailable Leigh Douglas MD Unavailable Leigh Douglas MD Primary Care Provider Rossi Singh MD Primary Care Provider Encounter Details Date Type Department Care Team (Late st Contact Info) Description 10/24/2017 Documentation [facility] [address] [place] [address] [phone] Becca Greebnerg, OT [address] [place] [address] [phone] [email or web address] Social History Tobacco Use Types Packs/Day Years Used Date Smoking Tobacco: Never Assessed Comments Unknown Sex and Gender Information Value Date Recorded Sex Assigned at Female 10/16/2020 12:27 PM EDT Legal Sex Female 2:30 PM EDT Gender Identity Female 10/16/2020 12:27 PM EDT Sexual Orientation Choose not to disclose 2020 12:27 PM EDT documented as of this encounter Plan of Treatment Not on file documented as of this encounter Visit Diagnoses Not on filedocumented in this encounter Additional Health Concerns Infection Onset Date Last Indicated Resolved Time CoV-Exposed Comment:Positive COVID-19 10/16/2020 10/16/2020 10/23/2020 7:5 5 PM EDT CoV-Risk 10/23/2020 10/23/2020 10/23/2020 7:55 PM EDT COVID-19 10/23/2020 10/23/2020 11/13/2020 1:24 AM EDT CoV-Risk 11/18/2020 11/18/2020 11/28/2020 1:23 AM EDT documented as of this encounter Care Teams Mental Health Coordinator Relationship Specialty Start Date End Date Leigh Douglas MD [address] [facility], [address] [place] [phone] [email or web address] PCP - General Family Medicine 10/07/17 10/15/20 Rossi Singh MD [address] [place] [address] PCP - General Family Medicine 10/16/20 Elaine Joy MD [address] [place] [address] Historical LMR Provider 03/29/17 1 Cleve Duarte MD [address] [place] [address] [email or web address] Historical LMR Provider 03/29/17 10/15/20 Leigh Douglas MD [address] [facility], [address] [phone] [email or web address] Historical LMR Provider 03/29/17 1 documented as of this encounter Additional Source Comments The information contained in this document represents components of the legal health record. It is not the complete legal health record.[facility]
--- OUTSIDE RECORDS SUMMARY | 2025-02-10 13:32 | XMS_ITS | Encounter Summary ---
Author Organization [facility] Address [address] [place] [address] Phone Care Team Providers Care Brick Shader Name Role Phone Rossi Singh MD Primary Care Provider Encounter Details Date Type Department Care Team (Late st Contact Info) Description 11/17/2020 Procedure Pass [facility], Ct Scan - [address] [address] Social History Tobacco Use Types Packs/Day Years Used Date Smoking Tobacco: Never Smokeless Tobacco: Never Alcohol Use Standard Drinks/Week Comments Not Currently 0 (1 standard drink = 0.6 oz pur e alcohol) Denies any in years Comments Unknown Sex and Gender Information Value Date Recorded Sex Assigned at Female 10/16/2020 12:27 PM EDT Legal Sex Female 2:30 PM EDT Gender Identity Female 10/16/2020 12:27 PM EDT Sexual Orientation Choose not to disclose 2020 12:27 PM EDT documented as of this encounter Functional Status * Calculated C-SSRS Risk Score (Lifetime/Recent) Answer Date of Assessment Author No Risk Indicated 11/18/2020 1:13 PM EDT Alicja Kevin RN * [place] Suicide Severity Rating Scale (Screener/Recent Self-Report) Question Answer Date of Assessment Author 1. Wish to be (Past 1 Month) No 021 1:13 PM EDT Alicja Kevin, RN 2. Non-Specific Active Suici katherine Thoughts (Past 1 Month) No 11/18/2020 1:13 PM EDT Alicja Kevin , RN 6. Suicidal Behavior (Lifetime) No 1 1:13 PM EDT Alicja Kevin, RN 6. Suicidal Behavior (3 Months) No 1 1:13 PM EDT Alicja Kevin, RN documented as of this encounter Plan of Treatment Not on file documented as of this encounter Visit Diagnoses Not on filedocumented in this encounter Additional Health Concerns Infection Onset Date Last Indicated Resolved Time CoV-Risk 11/18/2020 11/18/2020 11/28/2020 1:23 AM EDT documented as of this encounter Care Teams Brick Shader Relationship Specialty Start Date End Date Rossi Singh MD [address] [place] [phone] PCP - General Family Medicine 10/16/20 documented as of this encounter Additional Source Comments The information contained in this document represents components of the legal health record. It is not the complete legal health record.[facility]
--- OUTSIDE RECORDS SUMMARY | 2025-02-10 13:32 | XMS_ITS | Encounter Summary ---
Author Organization [facility] Address [address] [place] [address] Phone Care Team Providers Care Housekeeping Attendant Name Role Phone Elaine Joy MD Unavailable Cleve Duarte MD Unavailable Leigh Douglas MD Unavailable Leigh Douglas MD Primary Care Provider Rossi Singh MD Primary Care Provider Reason for Referral * Occupational Therapy (Within 2 weeks) - Closed Specialty Diagnoses / Procedures Referred By Ramila [email or web address] Referred To Contact Occupational Therapy Diagnoses Encounter for rehabilitation Right Hand Pain Procedures Evaluate & Treat System, Provider Not In, [facility] [id number] [place] [address] Phone: tel: Referral ID Status Reason Start Date Expiration Date Visits Re quested Visits Authorized [id number] Closed 10/07/2017 06/08/2018 20 20 Encounter Details Date Type Department Care Team (Latest Contact Info) Description 10/07/2017 Transcribe Orders [facility] Rehabilitation [facility] [address] [place] [address] Leigh Douglas MD [address] [place] [address] [place] [phone] [email or web address] Encounter for rehabilitation (Primary Dx) Social History Tobacco Use Types Packs/Day Years [...] on file documented as of this encounter Procedures Procedure Name Priority Date/Time Associated Diagnosis Comments AMB REFERRAL TO [facility] OCCUPATIONAL THERAPY Routine 10/17/2017 4:42 PM EDT Encounter for rehabilitation documented in this encounter Results * Ambulatory referral to [facility] Occupational Therapy (10/17/2017 4:42 PM EDT) us Provider Not In System PhD AMB [facility] REFERRALS Fin al Result documented in this encounter Visit Diagnoses Diagnosis Encounter for rehabilitation- Primary documented in this encounter Additional Health Concerns Infection Onset Date Last Indicated Resolved Time CoV-Exposed Comment:Positive COVID-19 10/16/2020 10/16/2020 10/23/2020 7:5 5 PM EDT CoV-Risk 10/23/2020 10/23/2020 10/23/2020 7:55 PM EDT COVID-19 10/23/2020 10/23/2020 11/13/2020 1:24 AM EDT CoV-Risk 11/18/2020 11/18/2020 11/28/2020 1:23 AM EDT documented as of this encounter Care Teams Housekeeping Attendant Relationship Specialty Start Date End Date Leigh Douglas MD [address] [place] [address] [place] [phone] [email or web address] PCP - General Family Medicine 10/07/17 10/15/20 Rossi Singh MD [address] [place] [address] PCP - General Family Medicine 10/16/20 Elaine Joy MD [address] [place] [address] Historical LMR Provider 03/29/17 1 Cleve Duarte MD [address] [facility] [address] [place] [address] [email or web address] Historical LMR Provider 03/29/17 10/15/20 Leigh Douglas MD [address] [facility], [facility] [address] [place] [phone] [email or web address] Historical LMR Provider 03/29/17 1 documented as of this encounter Additional Source Comments The information contained in this document represents components of the legal health record. It is not the complete legal health record.[facility]
--- OUTSIDE RECORDS SUMMARY | 2025-02-10 13:32 | XMS_ITS | Encounter Summary ---
Author Organization [facility] Address [address] [place] [address] Phone Care Team Providers Care Pot Runner Name Role Phone Rossi Singh MD Primary Care Provider Encounter Details Date Type Department Care Team (Late st Contact Info) Description 10/23/2020 Procedure Pass [facility], Ct Scan - [address] [address] Social History Tobacco Use Types Packs/Day Years [...] Date of Assessment Author No Risk Indicated 10/23/2020 6:10 PM EDT Mason Dominguez RN * [place] Suicide Severity Rating Scale (Screener/Recent Self-Report) Question Answer Date of Assessment Author 1. Wish to be (Past 1 Month) No 021 6:10 PM EDT Mason Dominguez RN 2. Non-Specific Active Suici katherine Thoughts (Past 1 Month) No 10/23/2020 6:10 PM EDT Alberto, Maxw ell, RN 6. Suicidal Behavior (Lifetime) No 6:10 PM EDT Mason Dominguez RN documented as of this encounter Plan [...] documented as of this encounter Care Teams Pot Runner Relationship Specialty Start Date End Date Rossi Singh MD [address] [place] [phone] PCP - General Family Medicine 10/16/20 documented as of this encounter Additional Source Comments The information contained in this document represents components of the legal health record. It is not the complete legal health record.[facility]
--- OUTSIDE RECORDS SUMMARY | 2025-02-10 13:32 | XMS_ITS | Encounter Summary ---
Author Organization [facility] Address [address] [place] [address] Phone Care Team Providers Care Turner Splitter Machine Operator Name Role Phone Rossi Singh MD Primary Care Provider Encounter Details Date Type Department Care Team (Late st Contact Info) Description 10/26/2020 Procedure Pass [facility] [address] [place] [address] Social History Tobacco Use Types Packs/Day Years [...] Infection Onset Date Last Indicated Resolved Time COVID-19 10/23/2020 10/23/2020 11/13/2020 1:24 AM EDT CoV-Risk 11/18/2020 11/18/2020 11/28/2020 1:23 AM EDT documented as of this encounter Care Teams Turner Splitter Machine Operator Relationship Specialty Start Date End Date Rossi Singh MD [address] [place] [address] PCP - General Family Medicine 10/16/20 documented as of this encounter Additional Source Comments The information contained in this document represents components of the legal health record. It is not the complete legal health record.[facility]
== END 2025-02-10 13:04 | disposition home or self-care (01) ==
LOC: HO.HGI 11:56
PROVIDERS: PCP Family Medicine; Visit Provider Internal Medicine Gastroenterology
DX: B19.10 Unspecified viral hepatitis B without hepatic coma (principal); Z86.0100 Personal history of colon polyps, unspecified
CPT/HCPCS: 99214

== ENCOUNTER 2025-04-15 08:57 | Outpatient (REF) | payer OTHER, SELFPAY ==
--- NOTE | ~2025-04-15 | US_ITS ---
CLINICAL HISTORY: B19.10 - Unspecified viral hepatitis B without hepatic coma --- Additional Notes or Special Instructions: Screen for HCC US abdomen limited Comparison: 04/18/2023 Findings: The visualized pancreas is normal. The aorta and inferior vena cava are normal caliber. The appearance of the liver suggests fatty infiltration. There is no intrahepatic bile duct dilatation. The common duct is 3.0 mm in diameter. The gallbladder is normal. There is no sonographic Kevin sign. The main portal vein is antegrade. The right kidney is 10.4 cm in length. No ascites. IMPRESSION: 1. Hepatic steatosis. This document has been electronically signed by: Rivera Rocha MD on 04/17/2025 09:04:55
[2025-04-15 10:02] LABS: Alanine Aminotransferase 23 U/L (0-31); Albumin Level 4.8 g/dL (3.5-5.0); Alkaline Phosphatase 57 U/L (39-117); Anion Gap 13 (12-20); Aspartate Amino Transferase 35 U/L (5-31); Blood Urea Nitrogen 16 mg/dL (9-16); Calcium 9.6 mg/dL (8.4-10.2); Carbon Dioxide 26 mmol/L (22-29); Chloride 107 mmol/L (96-108); Cholesterol 182 mg/dL (<200); Estimated Glomerular Filt Rate > 60; HDL Cholesterol 57 mg/dL (>40); Potassium 4.2 mmol/L (3.3-5.1); Sodium 142 mmol/L (135-145); Total Protein 8.0 g/dL (6.5-8.0); Triglycerides 67 mg/dL (<150)
== END 2025-04-15 08:58 | disposition home or self-care (01) ==
LOC: HO.US 08:57
PROVIDERS: Absent Provider Nurse Practitioner Family; PCP Family Medicine; Visit Provider Internal Medicine Gastroenterology
DX: E78.5 Hyperlipidemia, unspecified (principal); B19.10 Unspecified viral hepatitis B without hepatic coma
CPT/HCPCS: 36415; 76705; 80053; 80061

== ENCOUNTER → 2025-04-15 09:11 | Outpatient (BNV) | payer OTHER, SELFPAY | PROVIDERS: Absent Provider Nurse Practitioner Family; PCP Family Medicine; Visit Provider Specialist | DX: B19.10 Unspecified viral hepatitis B without hepatic coma (principal); K76.0 Fatty (change of) liver, not elsewhere classified | CPT/HCPCS: 76705 ==